=== PATIENT | female | born 1960 | race Caucasian/White ===

== ENCOUNTER → 2024-12-29 | Outpatient (CLI) | payer BC ==
[2024-12-29 08:30] LABS: BASO # 0.0 10^3/uL (0.0-0.2); BASO % 0.8 % (0.0-1.0); EOS # 0.2 10^3/uL (0.0-0.5); EOS % 4.5 % (0.0-3.0); LYMPH # 1.4 10^3/uL (1.5-5.0); LYMPH % 37.2 % (24.0-44.0); MONO # 0.4 10^3/uL (0.0-0.8); MONO % 11.7 % (2.0-8.0); NEUTROPHILS # 1.7 10^3/uL (1.5-8.5); NEUTROPHILS % 45.5 % (36.0-66.0); PLATELET COUNT, AUTOMATED 289 10^3/uL (150-450)
[2024-12-29 08:59] LABS: IRON (FE) 64.0 UG/DL (50-170); PERCENT SATURATION 21.1 % (13.2-45.0)
== END ==
LOC: M LAB 07:50
PROVIDERS: ATTEND Orthopaedic Surgery
DX: Z01.812 Encounter for preprocedural laboratory examination (principal); M25.562 Pain in left knee; M17.12 Unilateral primary osteoarthritis, left knee